=== PATIENT | male | born 1975 | race Two or more races ===

== ENCOUNTER 2024-01-26 14:48 | Emergency (ER) | payer MEDICAID ==
[~2024-01-26] VITALS: Ht 182.9 cm; Wt 129.3 kg
[2024-01-26 15:01] VITALS: BP 213/126; TEMP 98.6; O2SAT 97
[2024-01-26 15:23] LABS: BASOPHILS % (AUTO) 0.3 % (0.0-2.0); EOSINOPHILS # (AUTO) 0.1 K/uL (0.0-0.7); EOSINOPHILS % (AUTO) 1.6 % (0.0-6.0); HEMATOCRIT 42 % (39-51); MEAN CORPUSCULAR HEMOGLOBIN 29 PG (26.0-33.0); MEAN CORPUSCULAR HGB CONC 33 g/dl (31.0-36.0); MEAN CORPUSCULAR VOLUME 88 fL (80-96); MONOCYTES # (AUTO) 0.7 K/uL (0.1-1.30); MONOCYTES % (AUTO) 8.1 % (2.0-12.0); NEUTROPHILS # (AUTO) 6.5 K/uL (1.8-8.9); PLATELET COUNT (AUTO) 252 K/uL (150-450); RED BLOOD CELL COUNT(AUTO) 4.84 MIL/uL (4.5-6.0); WHITE BLOOD COUNT (AUTO) 8.3 K/uL (4.3-11.0)
[2024-01-26 15:32] LABS: CALCIUM, SERUM 8.7 mg/dL (8.5-10.1); CARBON DIOXIDE 28 mmol/L (21-32); CHLORIDE 97 mmol/L (98-107); CREATININE 1.3 mg/dL (0.6-1.3); GLUCOSE 302 mg/dL (74-106); POTASSIUM 4.3 mmol/L (3.5-5.1); SODIUM SERUM 130 mmol/L (136-145); UREA NITROGEN, BLOOD 13 mg/dL (7-18)
[2024-01-26 15:44] LABS: ALANINE AMINOTRANSFERASE 153 U/L (12-78); ALBUMIN 3.1 g/dL (3.4-5.0); ALKALINE PHOSPHATASE 148 U/L (46-116); ASPARTATE AMINOTRANSFERASE 33 U/L (15-37); BILIRUBIN,DIRECT 0.2 mg/dL (0.0-0.2); BILIRUBIN,TOTAL 0.8 mg/dL (0.2-1.0); NT-PRO BNP 459 pg/mL (0-125); TOTAL PROTEIN, SERUM 6.7 g/dL (6.4-8.2)
== END 2024-01-26 15:39 | disposition left against medical advice (07) ==
LOC: ER 14:59
DX: R07.89 Other chest pain (principal); I10 Essential (primary) hypertension; E11.9 Type 2 diabetes mellitus without complications
CPT/HCPCS: 36415; 80048-TC; 80076-TC; 83880; 84484-TC; 85025-TC

== ENCOUNTER 2024-02-15 03:00 | Inpatient (IN) | payer MEDICAID ==
[~2024-02-15] VITALS: Ht 182.9 cm; Wt 93.9 kg
[2024-02-15 03:56] LABS: BASOPHILS % (AUTO) 0.4 % (0.0-2.0); EOSINOPHILS # (AUTO) 0.1 K/uL (0.0-0.7); EOSINOPHILS % (AUTO) 2.6 % (0.0-6.0); HEMATOCRIT 38 % (39-51); HEMOGLOBIN 12.8 g/dL (13.5-17.5); LYMPHOCYTES # (AUTO) 1.2 K/uL (0.8-4.8); LYMPHOCYTES % (AUTO) 28.3 % (20.0-44.0); MEAN CORPUSCULAR HEMOGLOBIN 30 PG (26.0-33.0); MEAN CORPUSCULAR HGB CONC 34 g/dl (31.0-36.0); MEAN CORPUSCULAR VOLUME 89 fL (80-96); MONOCYTES # (AUTO) 0.7 K/uL (0.1-1.30); MONOCYTES % (AUTO) 15.3 % (2.0-12.0); NEUTROPHILS # (AUTO) 2.4 K/uL (1.8-8.9); NEUTROPHILS % (AUTO) 53.4 % (43.0-81.0); PLATELET COUNT (AUTO) 196 K/uL (150-450); RED BLOOD CELL COUNT(AUTO) 4.25 MIL/uL (4.5-6.0); RED CELL DISTRIBUTION WIDTH 13.7 % (11.5-15.0); WHITE BLOOD COUNT (AUTO) 4.4 K/uL (4.3-11.0)
[2024-02-15 04:23] LABS: ALBUMIN 2.8 g/dL (3.4-5.0); BILIRUBIN,TOTAL 0.4 mg/dL (0.2-1.0); CALCIUM, SERUM 8.1 mg/dL (8.5-10.1); CREATININE 1.4 mg/dL (0.6-1.3); POTASSIUM 4.5 mmol/L (3.5-5.1); TOTAL PROTEIN, SERUM 6.9 g/dL (6.4-8.2)
[2024-02-15 04:49] LABS: APPEARANCE,URINE CLEAR (CLEAR); BILIRUBIN,URINE NEGATIVE (NEGATIVE); BLOOD, URINE NEGATIVE Ery/uL (NEGATIVE); COLOR,URINE OTHER (YELLOW); KETONES,URINE NEGATIVE (NEGATIVE); LEUKOCYTE ESTERASE ,URINE NEGATIVE (NEGATIVE); NITRITE, URINE NEGATIVE (NEGATIVE); PH,URINE 5.5 (5.0-8.0); PROTEIN,URINE NEGATIVE (NEGATIVE); UGLUCOSE 3+ mg/dL (NEGATIVE); UROBILINOGEN,URINE 0.2 EU/dL (0.2)
[2024-02-15 04:56] LABS: ADD URINE CULTURE NO; BACTERIA,URINE Rare /HPF (None Seen); RBC,URINE 0-2 /HPF (0-2); SQUAMOUS EPITHELIAL CELL,UR Few /HPF (None Seen); WBC,URINE 0-2 /HPF (0-3)
[2024-02-15 05:01] LABS: AMPHETAMINE, URINE POSITIVE (NEGATIVE); BARBITURATE, URINE NEGATIVE (NEGATIVE); BENZODIAZEPINE, URINE NEGATIVE (NEGATIVE); CANNABINOID, URINE NEGATIVE (NEGATIVE); COCCAINE, URINE POSITIVE (NEGATIVE); OPIATE, URINE NEGATIVE (NEGATIVE); PHENCYCLIDINE SCREEN,URINE NEGATIVE (NEGATIVE)
[2024-02-15 05:20] LABS: ANISOCYTOSIS 1+; BASOPHILS % (MANUAL) 0 % (0.0-2.0); EOSINOPHILS % (MANUAL) 3 % (0-4); LYMPHOCYTES % (MANUAL) 22 % (16-48); MONOCYTES % (MANUAL) 16 % (0-11.0); NEUTROPHILS % (MANUAL) 59 (42-76); PLATELET ESTIMATE ADEQUATE
[2024-02-15] MEDS ORDERED: ASPIRIN 325 MG TABLET ONE (05:31)
[2024-02-15] MEDS: ASPIRIN 325 MG TABLET PO ONE (05:32)
[2024-02-15] MEDS ORDERED: hydrALAZINE HCL IV 20 MG VIAL ONE ×2 (06:02→06:40)
[2024-02-15] MEDS: hydrALAZINE HCL IV 20 MG VIAL IV ONE ×2 (06:04→06:45)
[2024-02-15] MEDS ORDERED: NITROGLYCERIN 0.4 MG/TAB BOTTLE ONE (10:51)
[2024-02-15] MEDS: NITROGLYCERIN 0.4 MG/TAB BOTTLE SL ONE (10:54)
[2024-02-15] MEDS: NITROGLYCERIN 30 GM TUBE TP SCH (11:30)
[2024-02-15] MEDS ORDERED: MORPHINE SULFATE INJ 4 MG/ML DISP.SYRIN ONE (11:37)
[2024-02-15] MEDS: MORPHINE SULFATE INJ 2 MG/ML DISP.SYRIN IV ONE (11:46)
[2024-02-15 12:15] VITALS: BP 168/94; TEMP 97.8; O2SAT 99
[2024-02-15] MEDS ORDERED: DEXTROSE 50%-WATER 50 ML DISP.SYRIN IV PRN (12:30)
[2024-02-15] MEDS ORDERED: ZOLPIDEM TARTRATE 5 MG TABLET PO PRN (12:30)
[2024-02-15] MEDS ORDERED: ALBUTEROL FS 2.5 MG/0.5 ML VIAL.NEB NEB PRN (12:30)
[2024-02-15] MEDS ORDERED: ACETAMINOPHEN 325 MG TABLET PO PRN (12:30)
[2024-02-15] MEDS ORDERED: HYDR-4076 PO (13:17)
[2024-02-15] MEDS ORDERED: INSU100I26 SQ (13:17)
[2024-02-15] MEDS ORDERED: AMLO-213 PO (13:17)
[2024-02-15] MEDS ORDERED: METF1000 PO (13:17)
[2024-02-15] MEDS ORDERED: LOSA100T31 PO (13:17)
[2024-02-15] MEDS ORDERED: INSU100I47 SQ (13:17)
[2024-02-15] MEDS ORDERED: ATOR20TA PO (13:17)
[2024-02-15] MEDS ORDERED: LABE100T5 PO (13:17)
[2024-02-15] MEDS ORDERED: CHLO25TA2 PO (13:17)
[2024-02-15] MEDS: METOPROLOL SUCCINATE 50 MG TAB.SR.24H PO SCH (13:19)
[2024-02-15] MEDS: ASPIRIN 81 MG TAB.CHEW PO SCH (13:19)
[2024-02-15] MEDS: hydrALAZINE HCL 50 MG TABLET PO SCH (13:19)
[2024-02-15] MEDS: FUROSEMIDE 40 MG/4 ML VIAL IV ONE (13:20)
[2024-02-15] MEDS: CEFTRIAXONE 1 G in IV D5W 50 ML IV SCH (14:08)
[2024-02-15] MEDS: HYDROCODONE/APAP 5/325MG TABLET PO PRN (14:09)
[2024-02-15] MEDS: AZITHROMYCIN 500 MG in IV D5W 250 ML IV SCH (15:26)
[2024-02-15] MEDS: BLOOD SUGAR DIAGNOSTIC 1 EACH STRIP VI SCH (16:54)
[2024-02-15] MEDS: INSULIN REGULAR, HUMAN 100 UNIT/ML 3 ML VIAL SQ PRN (17:04)
[2024-02-15 20:00] VITALS: BP 158/75; TEMP 98.2; O2SAT 98
[2024-02-15 20:08] VITALS: BP 158/75; TEMP 98.2; O2SAT 98
[2024-02-15] MEDS: HEPARIN SODIUM, PORCINE 5000 UNITS/1 ML VIAL SQ SCH (21:05)
[2024-02-15] MEDS: ATORVASTATIN 10 MG TABLET PO SCH (21:05)
[2024-02-15] MEDS: AMLODIPINE BESYLATE 5 MG TABLET PO SCH (21:20)
[2024-02-15] MEDS: *INSULIN REGULAR(HUMULIN R)HUM 100 UNIT/ML VIAL SQ PRN (21:35)
[2024-02-16] VITALS (7 sets, daily range): BP systolic 143–193; BP diastolic 78–95; TEMP 97.7–99.7; O2SAT 96–98
[2024-02-16] MEDS ORDERED: AMOX-430 PO (08:05)
[2024-02-16] MEDS: hydrALAZINE HCL 25 MG TABLET PO SCH (08:51)
[2024-02-16] MEDS: LABETALOL HCL (100MG) 100 MG TABLET PO SCH (08:51)
[2024-02-16] MEDS: AMLODIPINE BESYLATE 10 MG TABLET PO SCH (08:51)
[2024-02-16] MEDS: INSULIN GLARGINE, 100 UNIT/ML CARTRIDGE SQ SCH (08:54)
[2024-02-16] MEDS: METFORMIN 500 MG TABLET PO SCH (08:58)
[2024-02-16] MEDS: LOSARTAN POTASSIUM 50 MG TABLET PO SCH (08:58)
[2024-02-16] MEDS ORDERED: INSULIN ASPART 8 UNIT SQ SCH (09:00)
[2024-02-16] MEDS ORDERED: Medication Not On Formulary EA (Chlorthalidone 25 MG) PO SCH (09:00)
[2024-02-16] MEDS ORDERED: ASPIRIN EC 81 MG TABLET.DR PO SCH (09:00)
[2024-02-16] MEDS ORDERED: CLONIDINE HCL 0.1 MG TABLET PO PRN (11:00)
[2024-02-16] MEDS ORDERED: ATORVASTATIN 10 MG TABLET PO SCH (22:00)
== END 2024-02-16 15:55 | disposition home or self-care (01) | DRG 139 ==
LOC: ER 03:02 → TELE 12:01
PROVIDERS: ADMIT Internal Medicine; ATTEND Internal Medicine
DX: J15.9 Unspecified bacterial pneumonia (principal); I21.A1 Myocardial infarction type 2; E66.9 Obesity, unspecified; J20.9 Acute bronchitis, unspecified; J45.909 Unspecified asthma, uncomplicated; Z59.00 Homelessness unspecified; Z20.822 Contact with and (suspected) exposure to COVID-19; E11.9 Type 2 diabetes mellitus without complications; F19.10 Other psychoactive substance abuse, uncomplicated; Z68.28 Body mass index [BMI] 28.0-28.9, adult; G47.33 Obstructive sleep apnea (adult) (pediatric); R07.89 Other chest pain; Z79.84 Long term (current) use of oral hypoglycemic drugs; Z79.4 Long term (current) use of insulin; I10 Essential (primary) hypertension; R93.1 Abnormal findings on diagnostic imaging of heart and coronary circulation
CPT/HCPCS: 36415; 71045-TC; 76770-TC; 80053-TC; 81001; 82962-TC; 83880; 84484-TC; 85025-TC; 93307-TC; 98960; A4223; G0378; G0480; J0360; J0456; J0696; J1644; J1815; J1940; J2270; J7040; J7060

== ENCOUNTER 2024-04-06 10:26 | Emergency (ER) | payer MEDICAID ==
[~2024-04-06] VITALS: Ht 182.9 cm; Wt 127.0 kg
[~2024-04-06 10:26] MED LIST: AMLO-213 PO; AMOX-430 PO; ATOR20TA PO; CHLO25TA2 PO; HYDR-4076 PO; INSU100I26 SQ; INSU100I47 SQ; LABE100T5 PO; LOSA100T31 PO; METF1000 PO
[2024-04-06] MEDS: IV NS 0.9% 1,000 ML BAG IV ONE ×2 (11:00→12:30)
[2024-04-06 11:12] LABS: BASOPHILS % (AUTO) 0.5 % (0.0-2.0); EOSINOPHILS # (AUTO) 0.1 K/uL (0.0-0.7); EOSINOPHILS % (AUTO) 1.9 % (0.0-6.0); HEMATOCRIT 43 % (39-51); HEMOGLOBIN 13.9 g/dL (13.5-17.5); LYMPHOCYTES % (AUTO) 29.2 % (20.0-44.0); MEAN CORPUSCULAR HEMOGLOBIN 30 PG (26.0-33.0); MEAN CORPUSCULAR HGB CONC 33 g/dl (31.0-36.0); MEAN CORPUSCULAR VOLUME 92 fL (80-96); MONOCYTES # (AUTO) 0.4 K/uL (0.1-1.30); MONOCYTES % (AUTO) 11.7 % (2.0-12.0); NEUTROPHILS % (AUTO) 56.7 % (43.0-81.0); PLATELET COUNT (AUTO) 206 K/uL (150-450); RED BLOOD CELL COUNT(AUTO) 4.65 MIL/uL (4.5-6.0); RED CELL DISTRIBUTION WIDTH 14.6 % (11.5-15.0); WHITE BLOOD COUNT (AUTO) 3.6 K/uL (4.3-11.0)
[2024-04-06 11:41] LABS: CALCIUM, SERUM 8.6 mg/dL (8.5-10.1); CREATININE 1.3 mg/dL (0.6-1.3); POTASSIUM 4.5 mmol/L (3.5-5.1)
[2024-04-06 11:45] LABS: ALBUMIN 3.1 g/dL (3.4-5.0); BILIRUBIN,DIRECT 0.2 mg/dL (0.0-0.2); BILIRUBIN,TOTAL 0.5 mg/dL (0.2-1.0); TOTAL PROTEIN, SERUM 6.7 g/dL (6.4-8.2)
[2024-04-06 11:53] LABS: APPEARANCE,URINE CLEAR (CLEAR); BILIRUBIN,URINE NEGATIVE (NEGATIVE); BLOOD, URINE NEGATIVE Ery/uL (NEGATIVE); COLOR,URINE YELLOW (YELLOW); KETONES,URINE NEGATIVE (NEGATIVE); LEUKOCYTE ESTERASE ,URINE NEGATIVE (NEGATIVE); NITRITE, URINE NEGATIVE (NEGATIVE); PROTEIN,URINE NEGATIVE (NEGATIVE); UGLUCOSE 3+ mg/dL (NEGATIVE); UROBILINOGEN,URINE 0.2 EU/dL (0.2)
[2024-04-06 12:08] LABS: ADD URINE CULTURE NO; BACTERIA,URINE None seen /HPF (None Seen); RBC,URINE 0-2 /HPF (0-2); SQUAMOUS EPITHELIAL CELL,UR None Seen /HPF (None Seen); TRICHOMONAS,URINE None Seen /HPF (None Seen); URINE AMORPHOUS URATE Few /HPF (None Seen); WBC,URINE 0-2 /HPF (0-3); YEAST,URINE None Seen /HPF (None Seen)
[2024-04-06 12:09] LABS: HYALINE CASTS, URINE Few /LPF (None Seen)
[2024-04-06] MEDS ORDERED: LABETALOL HCL (100MG) 100 MG TABLET ONE (12:09)
[2024-04-06] MEDS ORDERED: hydrALAZINE HCL 50 MG TABLET ONE (12:09)
[2024-04-06] MEDS: hydrALAZINE HCL 25 MG TABLET PO ONE (12:22)
[2024-04-06] MEDS: LABETALOL HCL (100MG) 100 MG TABLET PO ONE (12:22)
[2024-04-06] MEDS ORDERED: INSULIN REGULAR, HUMAN 100 UNIT/ML 10 ML VIAL ONE (12:36)
[2024-04-06] MEDS: INSULIN REGULAR, HUMAN 100 UNIT/ML 10 ML VIAL SQ ONE (12:40)
[2024-04-06] MEDS ORDERED: INSU100I26 SQ (13:02)
[2024-04-06] MEDS ORDERED: AMLO-213 PO (13:02)
[2024-04-06] MEDS ORDERED: HYDR-4076 PO (13:02)
[2024-04-06] MEDS ORDERED: INSU100I47 SQ (13:02)
[2024-04-06] MEDS ORDERED: METF1000 PO (13:02)
[2024-04-06] MEDS ORDERED: LABE100T5 PO (13:02)
[2024-04-06] MEDS ORDERED: ATOR20TA PO (13:02)
[2024-04-06 15:01] VITALS: BP 160/98; TEMP 98.6; O2SAT 97
== END 2024-04-06 14:53 | disposition home or self-care (01) ==
LOC: ER 10:29
DX: I11.0 Hypertensive heart disease with heart failure (principal); I50.9 Heart failure, unspecified; E11.65 Type 2 diabetes mellitus with hyperglycemia; E78.5 Hyperlipidemia, unspecified; R51.9 Headache, unspecified; E66.9 Obesity, unspecified; F19.10 Other psychoactive substance abuse, uncomplicated; F17.200 Nicotine dependence, unspecified, uncomplicated; Z59.00 Homelessness unspecified; Z68.38 Body mass index [BMI] 38.0-38.9, adult; Z91.148 Patient's other noncompliance with medication regimen for other reason; Z86.79 Personal history of other diseases of the circulatory system
CPT/HCPCS: 99285; 96360; 71045; 96361; 93005; 85025; 80048; 83605; 83690; 80076; 81001; 36415; 82962 ×2; 96372; J1815; J7030